=== PATIENT | female | born 1985 | race Two or more races ===

== ENCOUNTER 2022-06-09 01:36 | Observation (INO) | payer MEDICAID, OTHER ==
[~2022-06-09] VITALS: Ht 152.4 cm; Wt 67.0 kg
== END 2022-06-09 03:08 | disposition home or self-care (01) ==
LOC: LDRP 01:36
PROVIDERS: ADMIT Obstetrics & Gynecology; ATTEND Obstetrics & Gynecology
DX: Z34.80 Encounter for supervision of other normal pregnancy, unspecified trimester (principal); Z3A.00 Weeks of gestation of pregnancy not specified
CPT/HCPCS: 59025; 81002; 84112; 94760; G0378; Q0114